=== PATIENT | female | born 1990 | race African-American/Black ===

== ENCOUNTER 2022-01-24 12:25 | Emergency (ER) | payer MEDICAID ==
[~2022-01-24] VITALS: Ht 162.6 cm; Wt 62.0 kg
[2022-01-24 12:30] VITALS: BP 112/87
[2022-01-24 14:32] LABS: CLARITY URINE CLEAR (CLEAR); COLOR URINE YELLOW (YELLOW); KETONES URINE NEGATIVE (NEGATIVE); LEUKOCYTE ESTERASE URINE NEGATIVE (NEGATIVE); NITRITE URINE NEGATIVE (NEGATIVE); OCCULT BLOOD URINE NEGATIVE (NEGATIVE); PROTEIN URINE NEGATIVE (NEGATIVE); SPECIFIC GRAVITY URINE 1.006 (1.005-1.030)
[2022-01-24 14:32] LABS: CHLORIDE 107 mEq/L (98-107)
[2022-01-24 14:44] LABS: BASOPHILS % 0.5 % (0.0-2.0); EOSINOPHILS % 1.1 % (0.0-5.0); HEMATOCRIT. 27.2 % (36.0-48.0); HEMOGLOBIN. 9.8 g/dL (12.0-16.0); LYMPHOCYTES % 16.5 % (20.0-50.0); MEAN CORPUSCULAR HEMOGLOBIN 27.5 pg (28.0-32.0); MEAN CORPUSCULAR VOLUME 76.4 fL (81.0-99.0); MONOCYTES % 7.5 % (2.0-8.0); NEUTROPHILS % 74.4 % (40.0-76.0); PLATELET 132 x1000/uL (130-400); RED BLOOD CELL COUNT 3.56 mill/uL (4.2-5.4); RED CELL DISTRIBUTION WIDTH 20.2 % (11.6-14.6)
[2022-01-24] MEDS ORDERED: DICYCLOMINE HCL 10MG CAPSULE PO ONE (16:30)
[2022-01-24] MEDS ORDERED: SODIUM CHLORIDE 0.9% 1,000 ML IV ONE (16:30)
[2022-01-24] MEDS ORDERED: ONDA4TAB5 MT (18:34)
[2022-01-24] MEDS ORDERED: IBUP-2029 MT (18:34)
[2022-01-24] MEDS ORDERED: DICY10CA88 MT (18:34)
== END 2022-01-24 19:52 | disposition home or self-care (01) ==
LOC: ER 12:25
DX: K80.20 Calculus of gallbladder without cholecystitis without obstruction (principal); D64.9 Anemia, unspecified; R10.9 Unspecified abdominal pain; D57.1 Sickle-cell disease without crisis
CPT/HCPCS: 36415; 76705; 80053; 81003; 83690; 85025; 85044; 93005; 96360; 99285; J7030; Z7610